=== PATIENT | male | born 1970 | race American Indian/Alaskan Native ===

== ENCOUNTER 2025-04-20 09:01 | Emergency (ER) | payer MEDICAID, SELFPAY ==
--- NOTE | 2025-04-20 09:22 | PC.NURSE ---
Patient was BIBA from [facility] following a reported fall. Patient is non-ambulatory at baseline. Per nursing staff, the fall occurred from a seated position to the floor. Patient complains of pain in the left shoulder. Denies hitting head. No LOC reported. Patient is NKA. History of diabetes mellitus (DM). Has a left arm AV fistula for hemodialysis, which is received on Friday, Friday, and Friday. Left arm fistula site appears intact.
[2025-04-20 09:30] VITALS: BP 105/72; PULSE 65; RESP 16; TEMP 36.7; O2SAT 95
--- NOTE | 2025-04-20 09:45 | XR_ITS ---
Examination: Humerus 2 views left Technique: Humerus, AP lateral 2 views Date and time of exam: April 20, 2025 1004 hours INDICATIONS: Patient fell today with injury to the arm, arm pain FINDINGS: Impacted fracture humeral neck with mild offset Shaft of the humerus intact IMPRESSION: Impacted left humeral neck fracture
--- NOTE | 2025-04-20 09:45 | XR_ITS ---
Examination: CT brain head without contrast. 2-D sagittal coronal reconstructions Date and time of exam:April 20, 2025 1037 hours Comparison November 28, 2023 INDICATIONS: Ground-level fall today with injury to the head, head pain CTDI: vol (mGy):54.9 DLP: (mGycm):1092 Technique: Multiple CT axial sections of the brain have been obtained, 5 mm slice thickness. Contrast has not been administered. 2-D sagittal, coronal reconstructions have been obtained Low dose protocols were performed. One or more of the following dose reduction techniques were used; automated exposure control, adjustment of the mA and/or KV according to patient size, use of iterative reconstruction technique. Findings: No significant ventricular enlargement. Intra-axial or extra-axial hemorrhage density is not seen. No mass effect or midline shift Basal cisterns are not remarkable. Fourth ventricle is midline. Cranial vault intact. Impression: Negative for acute hemorrhage, mass effect or midline shift
--- NOTE | 2025-04-20 09:45 | XR_ITS ---
Examination: Shoulder,left, 3 views Technique: Shoulder AP internal rotation, AP external rotation, Y view shoulder, 3 views Exam date and time :April 20, 2025 1004 hours INDICATIONS: Patient fell from wheelchair today with injury to the shoulder, shoulder pain. FINDINGS: Acute impacted angulated fracture humeral neck No shoulder dislocation Severe osteopenia IMPRESSION: Acute impacted angulated fracture humeral neck
[2025-04-20] MEDS: fentaNYL CIT INJ 50 mCg/ML AMP 2ML IVP (10:01)
--- NOTE | 2025-04-20 10:28 | EDNOTE_ITS ---
ED Fall Injury RME/HPI General Chief Complaint: Fall Stated Complaint: FALL Time Seen by Provider: 04/20/25 09:39 Arrival date/time: 04/20/25 09:01 Limitations: no limitations RME / HPI RME / HPI Narrative: 54 year old male with history of CVA, hypertension, diabetes, ESRD on HD M/W/F presents to the ED BIB from [facility] for evaluation after fall occurring ~ 1 hours [employer] today. Patient reports he was sitting in his wheelchair when he slipped off, landing on the floor on his left side. Followed by pain to the left shoulder he rates as severe that is aggravated with movements. Denies head injury although does report questionable LOC stating I don't remember the fall . No other injuries or complaints reported. Denies neck or back pain. Related Data Home Medications ?Medication ?Instructions ?Recorded ?Confirmed atorvastatin 80 mg tablet 80 mg PO QDAY 07/30/2107/31 glipizide 5 mg tablet 2.5 mg PO AC 07/30/21 insulin glargine 100 unit/mL (3 20 unit subcut QPM 10/1907/31/21 mL) subcutaneous pen (Lantus Solostar U-100 Insulin) lisinopril 40 mg tablet 40 mg PO QDAY 07/30/2107/31 carvedilol 12.5 mg tablet (Coreg) 12.5 mg PO BID 04/1304/13/23 econazole 1 %-niacinamide 4 % 1 applic topical BID 04/13/23 topical cream ergocalciferol (vitamin D2) 1,250 1,250 mcg PO QWEEK 0 04/13/23 04/13/23 mcg (50,000 unit) capsule (Vitamin D2) folic acid 1 mg tablet 1 mg PO QDAY 04/13/23 furosemide 40 mg tablet (Lasix) 40 mg PO QDAY 04/13/23 04/13/23 loperamide 2 mg capsule mg 04/13/23 sodium bicarbonate 650 mg tablet 1,300 mg PO BID 04/1304/13/23 vitamin B complex-vitamin C-folic 1 tab PO QDAY 04/13/23 acid 0.8 mg tablet (Iman-Markus) Previous Rx's ?Medication ?Instructions ?Recorded aspirin 81 mg capsule 81 mg PO QDAY #30 caps 06/01 amlodipine 10 mg tablet 10 mg PO QDAY #30 tabs 04/13 Allergies Allergy/AdvReac Type Severity Reaction Status Date / Time No Known Allergies Allergy Verified 07/31/21 16:47 Review of Systems Review of Systems Systems Reviewed: All systems reviewed, normal except as documented Past Medical History Past Medical History NEUROLOGIC: Positive Neurological Disorders, Cerebrovascular Accident and Seizures CARDIAC: Positive Cardiac Disorders and Hypertension GENITOURINARY: Positive Renal Disease and Dialysis ENDOCRINE: Positive Diabetes Mellitus Type 2 Social History SMOKING STATUS: Never smoker ED Exam General Limitations: Present no limitations General appearance: Present alert and in no apparent distress Head Head exam: Present atraumatic, normocephalic, normal inspection and other (No cervical spine tenderness to palpation, patient has full painless range of motion of his neck) Eye Eye exam: Present normal appearance, PERRL and EOMI ENT ENT exam: Present normal exam, normal oropharynx and mucous membranes moist Neck Neck exam: Present normal inspection, full ROM and trachea midline Chest Chest inspection: Present normal inspection and symmetric chest wall rise Respiratory Respiratory exam: Present normal lung sounds bilaterally Cardiovascular Cardiovascular exam: Present regular rate, normal rhythm and normal heart sounds Abdominal Exam Abdominal exam: Present soft and normal bowel sounds Extremities Exam Extremities exam: Present normal inspection and other (Patient able to move all extremities, LROM of the left upper extremity limited secondary to pain, 2+ radial pulses bilaterally and symmetrical , able to wiggle fingers, move wrist and elbow) Back Exam Back exam: Present normal inspection and full ROM Neurological Exam Neurological exam: Present alert, oriented X3 and CN II-XII intact Psychiatric Psychiatric exam: Present normal affect and normal mood Skin Skin exam: Present warm, dry, intact and normal color Course Quality Measures none Orders Category Date Time Status Miscellaneous Nursing Order NOW Care 04/20/25 11:32 Active sling [Splint / Immobilizer] STAT Care 04/20/25 12:37 Active Diet Carbohydrate Consistent Diet 04/20/[address] head/brain wo con Stat Exams 04/20/25 09:45 Completed XR humerus LT MIN 2V Stat Exams 04/20/25 09:45 Completed XR shoulder LT min 2V Stat Exams 04/20/25 09:45 Completed HYDROcodone/APAP 10/325 [[place] 10/325] Med 04/20/25 11:11 Discontinued 1 tab PO X1 ONE Morphine Inj Med 04/20/25 12:42 Discontinued 4 mg IVP NOW ONE Ondansetron Odt [Zofran Odt] Med 04/20/25 14:01 Once 4 mg PO X1 ONE fentaNYL INJ [Sublimaze Inj] Med 04/20/25 09:45 Discontinued 50 mcg IVP X1 ONE Vital Signs Vital signs: Vital Signs Temperature 98.1 F 04/20/25 09:30 Pulse Rate 65 04/20/25 09:30 Respiratory Rate 16 04/20/25 09:30 Blood Pressure 105/72 04/20/25 09:30 Pulse Oximetry (%) 95 04/20/25 09:30 Oxygen Delivery Method Room Air 04/20/25 09:30 Pulse ox is 95% on room air which is adequate. Fall MDM Narrative MDM Narrative:: I, Angeles Castillo, am scribing for and in the presence of Dr. Zelaya. Patient presents with left-sided shoulder pain after having had a fall. Unclear loss of consciousness. Patient states that he slipped out of his chair. Patient is not taking any blood thinners. Ordered CT brain and x-ray of the left shoulder. CT brain unremarkable. X-ray of the left shoulder shows a humeral neck fracture. Patient is neurovascularly intact. Provided patient with a sling we will discharge to home with close return precautions follow-up with primary care doctor as well as recommendation that he sees an orthopedic surgeon. Patient data External records reviewed:: [facility] previous records (I reviewed ED visit on 11/28/2023 ), EMS form and Care Home records (I reviewed pmhx and medication list from [place] ) Clinical information provided by:: patient and EMS Social determinants that could affect healthcare access:: housing ([place] resident ) Patient has the following chronic illnesses:: CVA, hypertension, diabetes, ESRD on HD M/W/F How is presenting disease/condition affected by chronic disease/condition?: exacerbated by Evaluation data The following diagnostics were reviewed and interpreted by me:: lab results and radiology exam(s) Lab and/or radiology exams considered but not ordered:: None Interpretation Summary: Ordering Physician: Dominique Zelaya MD Date of Service: 04/20/25 Procedure(s): CT head/brain wo con Accession Number(s): [id number] cc: Lori Cabezas MD; Leroy Kirby MD; Dominique Zelaya MD~ Examination: CT brain head without contrast. 2-D sagittal coronal reconstructions Date and time of exam:April 20, 2025 1037 hours Comparison November 28, 2023 INDICATIONS: Ground-level fall today with injury to the head, head pain CTDI: vol (mGy):54.9 DLP: (mGycm):1092 Technique: Multiple CT axial sections of the brain have been obtained, 5 mm slice thickness. Contrast has not been administered. 2-D sagittal, coronal reconstructions have been obtained Low dose protocols were performed. One or more of the following dose reduction techniques were used; automated exposure control, adjustment of the mA and/or KV according to patient size, use of iterative reconstruction technique. Findings: No significant ventricular enlargement. Intra-axial or extra-axial hemorrhage density is not seen. No mass effect or midline shift Basal cisterns are not remarkable. Fourth ventricle is midline. Cranial vault intact. Impression: Negative for acute hemorrhage, mass effect or midline shift Dictated By: Leroy Kirby MD Signed By: <Electronically signed by Leroy Kirby MD in [place]> 04/20/25 1048 === Ordering Physician: Dominique Zelaya MD Date of Service: 04/20/25 Procedure(s): XR humerus LT MIN 2V Accession Number(s): [id number] cc: Lori Cabezas MD; Leroy Kirby MD; Dominique Zelaya MD~ Examination: Humerus 2 views left Technique: Humerus, AP lateral 2 views Date and time of exam: April 20, 2025 1004 hours INDICATIONS: Patient fell today with injury to the arm, arm pain FINDINGS: Impacted fracture humeral neck with mild offset Shaft of the humerus intact IMPRESSION: Impacted left humeral neck fracture Dictated By: Leroy Kirby MD Signed By: <Electronically signed by Leroy Kirby MD in [place]> 04/20/25 1037 === Ordering Physician: Dominique Zelaya MD Date of Service: 04/20/25 Procedure(s): XR shoulder LT min 2V Accession Number(s): [id number] cc: Lori Cabezas MD; Leroy Kirby MD; Dominique Zelaya MD~ Examination: Shoulder,left, 3 views Technique: Shoulder AP internal rotation, AP external rotation, Y view shoulder, 3 views Exam date and time :April 20, 2025 1004 hours INDICATIONS: Patient fell from wheelchair today with injury to the shoulder, shoulder pain. FINDINGS: Acute impacted angulated fracture humeral neck No shoulder dislocation Severe osteopenia IMPRESSION: Acute impacted angulated fracture humeral neck Dictated By: Leroy Kirby MD Signed By: <Electronically signed by Leroy Kirby MD in [place]> 04/20/25 1038 Medications / Prescriptions Medications or Prescriptions considered but not ordered:: None Medication administrations:: Medication Administration History Discontinued Medications Hydrocodone Bitart/Acetaminophen (Hydrocodone/Apap 10/325 Tab) 1 tab PO X1 ONE Stop: 04/20/25 11:12 Last Admin: 04/20/25 11:18 Dose: 1 tab Documented By: DB Fentanyl Citrate (Fentanyl Cit Inj 50 Mcg/Ml Amp 2ml) 50 mcg IVP X1 ONE Stop: 04/20/25 09:46 Last Admin: 04/20/25 10:01 Dose: 50 mcg Documented By: EF Morphine Sulfate (Morphine Sulf Inj 10 Mg/Ml Vial) 4 mg IVP NOW ONE Stop: 04/20/25 12:43 Last Admin: 04/20/25 13:00 Dose: 4 mg Documented By: DB See above Consultations Consultation(s) initiated? (list below): No Diagnosis Fall Differential Diagnosis: syncope, dislocation of shoulder region and compression fracture Most likely diagnosis given after review of the tests above:: Left humeral neck fracture Osteopenia Admission Indicated Admission indicated?: not indicated Admission Request Was there a request for admission?: No Disposition Plan Disposition Plan: Discharge Discharge Attestation Discharge Attestation: The patient and all family members were given an opportunity to ask questions and understood the discharge instructions. Discharge instructions specifically effects, indications for sooner follow up or return to the emergency department, and the expected course of current diagnosis. Patient condition: Stable Discharge Plan Plan Patient Disposition: Xfer Skilled Nsg Fac (SNF) Discharge Disposition comment: txfer back to [facility] Patient condition on transfer: Stable Prescriptions/Referrals Prescriptions/Med Rec: No Action atorvastatin 80 mg Tablet 80 mg PO QDAY lisinopril 40 mg Tablet 40 mg PO QDAY glipizide 5 mg Tablet 2.5 mg PO AC Rx Instructions: take 1/2 table by mouth everyday before meals Lantus Solostar U-100 Insulin 100 unit/mL (3 mL) Insulin Pen 20 unit SUBCUT QPM aspirin 81 mg capsule 81 mg PO QDAY Qty: 30 0RF amlodipine 10 mg tablet 10 mg PO QDAY Qty: 30 0RF furosemide [Lasix] 40 mg Tablet 40 mg PO QDAY carvedilol [Coreg] 12.5 mg Tablet 12.5 mg PO BID Rx Instructions: must administer with a meal/food loperamide 2 mg capsule Patient Comments: PLEASE SEE ATTACHED FOR DETAILED DIRECTIONS sodium bicarbonate 650 mg Tablet 1,300 mg PO BID folic acid 1 mg Tablet 1 mg PO QDAY Iman-Markus 0.8 mg Tablet 1 tab PO QDAY ergocalciferol (vitamin D2) [Vitamin D2] 1,250 mcg (50,000 unit) Capsule 1,250 mcg PO QWEEK econazole-niacinamide 1-4 % Cream 1 applic TOPICAL BID Referrals: Lori Cabezas MD [Primary Care Provider] - In 1 week Problem List Clinical Impression: Fracture of neck of humerus, Fall, Osteopenia Patient/Caregiver Discharge Instructions Education Materials: ED Fracture, Shoulder Additional Instructions: Please follow-up with your primary care doctor and establish care with an orthopedic surgeon for definitive management of your left-sided humeral neck fracture. Return immediately if have worsening symptoms or new symptoms of concern Print Language: Albanian Stand Alone Forms: Jessica Award Info., Patient Portal Info Letter
[2025-04-20 11:11] VITALS: BMI 25.8
--- NOTE | 2025-04-20 12:29 | PC.CC ---
Kathie KENNEY was consulted by GARCIA Elizabeth for transportation back to [facility]. [phone].
[2025-04-20 12:41] VITALS: BP 112/66; PULSE 71; RESP 18; TEMP 36.4; O2SAT 96
[2025-04-20] MEDS: MORPHINE SULF INJ 10 MG/ML VIAL 4 MG IVP (13:00)
[2025-04-20] MEDS: ONDANSETRON ODT 4 MG TABRAP PO (14:06)
[2025-04-20 14:09] VITALS: BP 146/88; PULSE 75; RESP 16; TEMP 36.7; O2SAT 95
== END 2025-04-20 14:10 | disposition skilled nursing facility (03) ==
PROVIDERS: Emergency Provider Emergency Medicine; PCP Hospitalist
DX: S42.212A Unspecified displaced fracture of surgical neck of left humerus, initial encounter for closed fracture (principal); W05.0XXA Fall from non-moving wheelchair, initial encounter; M85.88 Other specified disorders of bone density and structure, other site; S09.90XA Unspecified injury of head, initial encounter
CPT/HCPCS: 70450; 73030; 73060; 96374; 96375; 99283; J2270; J3010; Q0162; A9270

== ENCOUNTER 2025-04-21 07:18 | Emergency (ER) | payer MEDICAID, SELFPAY ==
[2025-04-21] VITALS (20 sets, daily range): BP systolic 71–156; BP diastolic 41–71; PULSE 70–86; RESP 15–18; TEMP 35.9–37.1; O2SAT 91–97; BMI 27.4
--- NOTE | 2025-04-21 07:40 | PD.EDUPEX ---
Upper Extremity Injury RME/HPI General Chief Complaint: General Adult/[facility] Complain Stated Complaint: DIALYSIS PROBLEM Time Seen by Provider: 04/21/25 07:26 Arrival date/time: 04/21/25 07:18 Limitations: no limitations RME / HPI RME / HPI narrative: DR. SORIANO MAIN ED EVALUATION: 54-year-old male with past medical history of CVA, hypertension, diabetes mellitus, and ESRD on hemodialysis (Friday/Friday/Friday) presents to the Emergency Department for persistent left arm pain following recent fracture. Patient was seen and discharged from this ED on 04/20/2025 with a left humerus fracture. He reports that he has not undergone dialysis since that visit due to the fracture being at his dialysis fistula site. He denies nausea and vomiting. Patient is still urinating a little. Related Data Home Medications ?Medication ?Instructions ?Recorded ?Confirmed atorvastatin 80 mg tablet 80 mg PO QDAY 07/30/21 07/31/21 glipizide 5 mg tablet 2.5 mg PO AC 07/30/21 07/31/21 insulin glargine 100 unit/mL (3 20 unit subcut QPM 07/30/21 07/31/21 mL) subcutaneous pen (Lantus Solostar U-100 Insulin) lisinopril 40 mg tablet 40 mg PO QDAY 07/30/21 07/31/21 carvedilol 12.5 mg tablet (Coreg) 12.5 mg PO BID 04/13/23 04/13/23 econazole 1 %-niacinamide 4 % 1 applic topical BID 04/13/23 04/13/23 topical cream ergocalciferol (vitamin D2) 1,250 1,250 mcg PO QWEEK 04/13/23 04/13/23 mcg (50,000 unit) capsule (Vitamin D2) folic acid 1 mg tablet 1 mg PO QDAY 04/13/23 04/13/23 furosemide 40 mg tablet (Lasix) 40 mg PO QDAY 04/13/23 04/13/23 loperamide 2 mg capsule mg 04/13/23 sodium bicarbonate 650 mg tablet 1,300 mg PO BID 04/13/23 04/13/23 vitamin B complex-vitamin C-folic 1 tab PO QDAY 04/13/23 04/13/23 acid 0.8 mg tablet (Iman-Markus) Previous Rx's ?Medication ?Instructions ?Recorded aspirin 81 mg capsule 81 mg PO QDAY #30 caps 06/01/21 amlodipine 10 mg tablet 10 mg PO QDAY #30 tabs 04/13/23 Allergies Allergy/AdvReac Type Severity Reaction Status Date / Time No Known Allergies Allergy Verified 04/21/25 07:39 Review of Systems Review of Systems Systems Reviewed: All systems reviewed, normal except as documented Past Medical History Past Medical History NEUROLOGIC: Positive Neurological Disorders, Cerebrovascular Accident and Seizures CARDIAC: Positive Cardiac Disorders and Hypertension GENITOURINARY: Positive Renal Disease and Dialysis ENDOCRINE: Positive Diabetes Mellitus Type 2 Social History SMOKING STATUS: Never smoker SUBSTANCE USE: does not use ALCOHOL: Never ED Exam General Limitations: Present no limitations General appearance: Present alert, in no apparent distress and other (teeth grinding) Head Head exam: Present atraumatic, normocephalic and normal inspection Eye Eye exam: Present normal appearance, PERRL and EOMI ENT ENT exam: Present normal exam, normal oropharynx and mucous membranes moist Neck Neck exam: Present normal inspection, full ROM and trachea midline Chest Chest inspection: Present normal inspection and symmetric chest wall rise Respiratory Respiratory exam: Present normal lung sounds bilaterally Cardiovascular Cardiovascular exam: Present regular rate, normal rhythm and normal heart sounds Abdominal Exam Abdominal exam: Present soft and normal bowel sounds Extremities Exam Extremities exam: Present normal inspection and other (Left arm fistula in place. LROM of the left upper extremity limited secondary to pain and sling in place, 2+ radial pulses bilaterally and symmetrical , able to wiggle fingers; patient able to move all other extremities) Back Exam Back exam: Present normal inspection, full ROM and other (No cervical spine tenderness to palpation.) Neurological Exam Neurological exam: Present alert, oriented X3 and CN II-XII intact Psychiatric Psychiatric exam: Present normal affect and normal mood Skin Skin exam: Present warm, dry, intact and normal color Course Quality Measures none Orders Category Date Time Status Hemodialysis Urgent Care 04/21/25 11:52 Active Insert IV NOW Care 04/21/25 08:12 Completed CBC Stat Lab 04/21/25 08:07 Completed CMP [Comprehensive Metabolic Panel] Stat Lab 04/21/25 08:07 Completed PT [Prothrombin Time with INR] Stat Lab 04/21/25 08:07 Completed Albumin Human 25% Ivpb [Albuminar-25 Ivpb] Med 04/21/25 13:05 Discontinued 25 gm in 100 ml IV PRN Epoetin Dejon-Epbx Inj [Retacrit Inj] Med 04/21/25 14:30 Discontinued 10,000 unit SC X1 ONE Ketorolac Inj [Toradol Inj] Med 04/21/25 07:40 Discontinued 15 mg IVP X1 ONE Ondansetron Inj [Zofran Inj] Med 04/21/25 08:12 Discontinued 4 mg IVP X1 ONE Late Tray Request Routine Oth 04/21/25 13:21 Active Vital Signs Vital signs: Vital Signs Temperature 36.9 C 04/21/25 07:40 Pulse Rate 81 04/21/25 07:40 Respiratory Rate 18 04/21/25 07:40 Blood Pressure 124/71 04/21/25 07:40 Pulse Oximetry (%) 94 L 04/21/25 07:40 Oxygen Delivery Method Nasal Cannula 04/21/25 07:40 Oxygen Flow Rate 2 04/21/25 07:40 Extremity Injury MDM Narrative MDM Narrative:: Patient presents with concerns that he was unable to do dialysis at a make-up session because of a fracture in the upper extremity where he has his fistula. Vital signs and exam as listed. Patient nontoxic nonseptic. Patient sustained a humeral head fracture yesterday, was discharged in a sling he missed his regular dialysis and went to a make-up session. He has a fistula in the left forearm. He otherwise has no complaints other than pain in his left shoulder. Labs without acute hematologic abnormality. Patient is ESRD does not make any urine. Patient potassium is 5.2. Patient is breathing room air, not in distress. Will consult patient's foreign exchange position clerk for dialysis in the emergency department. Patient patient does not know his foreign exchange position clerk, I discussed the case with Dr. Fortune that states that she is not his dialysis foreign exchange position clerk but has seen the patient in the past. Given that we are unable to find out who the patient's foreign exchange position clerk is, she can be placed dialysis orders. Patient completed dialysis without any complications. Patient will be discharged home with close return precautions follow-up with his primary care doctor as well as his foreign exchange position clerk. Patient data External records reviewed:: [facility] previous records and EMS form Clinical information provided by:: patient and EMS Social determinants that could affect healthcare access:: mental health Patient has the following chronic illnesses:: CVA, hypertension, diabetes mellitus, and ESRD on hemodialysis (Friday/Friday/Friday). How is presenting disease/condition affected by chronic disease/condition?: exacerbated by Evaluation data The following diagnostics were reviewed and interpreted by me:: lab results Lab and/or radiology exams considered but not ordered:: none Interpretation Summary: Labs with evidence of hyperkalemia Medications / Prescriptions Medications or Prescriptions considered but not ordered:: none Medication administrations:: Medication Administration History Discontinued Medications Epoetin Dejon (Epoetin Dejon-Epbx Inj 10,000 Unit/Ml Vial (Esrd)) 10,000 unit SC X1 ONE Stop: 04/21/25 14:31 Albumin Human (Albuminar-25 Ivpb) 25 gm in 100 mls @ 100 mls/min IV PRN PRN PRN Reason: dialysis Stop: 04/24/25 13:04 Last Admin: 04/21/25 13:08 Dose: 100 mls/min Documented By: MM Ketorolac Tromethamine (Ketorolac Inj 30 Mg/Ml Vial) 15 mg IVP X1 ONE Stop: 04/21/25 07:41 Last Admin: 04/21/25 08:18 Dose: 15 mg Documented By: SAIRA Ondansetron HCl (Ondansetron Inj 2 Mg/Ml Inj 2 Ml) 4 mg IVP X1 ONE; Protocol Stop: 04/21/25 08:13 Last Admin: 04/21/25 08:17 Dose: 4 mg Documented By: SAIRA see above Consultations Consultation(s) initiated? (list below): Yes Consultation #1 (Physician, Specialty, Details): Discussed test HPI, PMHx, lab, radiology results and/or management with Dr. Adame. Dr. Adame will coordinate dialysis. Time: 10:02 Diagnosis Upper Extremity Injury Differential Diagnosis: other (Fracture-related pain, missed dialysis complications (e.g., volume overload or hyperkalemia), and dialysis access site complication.) Most likely diagnosis given after review of the tests above:: Hyperkalemia Admission Indicated Admission indicated?: not indicated Admission Request Was there a request for admission?: No Disposition Plan Disposition Plan: Discharge Discharge Attestation Discharge Attestation: The patient and all family members were given an opportunity to ask questions and understood the discharge instructions. Discharge instructions specifically effects, indications for sooner follow up or return to the emergency department, and the expected course of current diagnosis. Patient condition: Stable Critical Care Time Critical Care Time Critical Care Time: Yes Total Critical Care Time (min.): 40 Attestation: The high probability of sudden, clinically significant deterioration in the patient?s condition required the highest level of my preparedness to intervene urgently. The services I provided to this patient were to treat and/or prevent clinically significant deterioration. Services included the following: chart data review, reviewing nursing notes and/or old charts, documentation time, databases computer consultant collaboration regarding findings and treatment options, medication orders and management, direct patient care, vital sign assessments and ordering, interpreting and reviewing diagnostic studies and lab tests. Aggregate critical care time includes only time during which I was engaged in work directly related to the patient?s care, as described above, whether at bedside or elsewhere in the Emergency Department. It did not include time spent performing other reported procedures or the services of residents, students, nurses or physician assistants. Discharge Plan Plan Patient Disposition: Home w/HOME HEALTH Patient condition on transfer: Stable Prescriptions/Referrals Prescriptions/Med Rec: No Action atorvastatin 80 mg Tablet 80 mg PO QDAY lisinopril 40 mg Tablet 40 mg PO QDAY glipizide 5 mg Tablet 2.5 mg PO AC Rx Instructions: take 1/2 table by mouth everyday before meals Lantus Solostar U-100 Insulin 100 unit/mL (3 mL) Insulin Pen 20 unit SUBCUT QPM aspirin 81 mg capsule 81 mg PO QDAY Qty: 30 0RF amlodipine 10 mg tablet 10 mg PO QDAY Qty: 30 0RF furosemide [Lasix] 40 mg Tablet 40 mg PO QDAY carvedilol [Coreg] 12.5 mg Tablet 12.5 mg PO BID Rx Instructions: must administer with a meal/food loperamide 2 mg capsule Patient Comments: PLEASE SEE ATTACHED FOR DETAILED DIRECTIONS sodium bicarbonate 650 mg Tablet 1,300 mg PO BID folic acid 1 mg Tablet 1 mg PO QDAY Iman-Markus 0.8 mg Tablet 1 tab PO QDAY ergocalciferol (vitamin D2) [Vitamin D2] 1,250 mcg (50,000 unit) Capsule 1,250 mcg PO QWEEK econazole-niacinamide 1-4 % Cream 1 applic TOPICAL BID Referrals: No Primary/Family,Physician [Primary Care Provider] - In 1 week Problem List Clinical Impression: Acute hyperkalemia Patient/Caregiver Discharge Instructions Education Materials: ED Hyperkalemia Additional Instructions: Please follow-up with your primary care doctor as well as your foreign exchange position clerk. Per Dr. Fortune, your humeral head fracture on your left upper extremity is not a contraindication to completing dialysis through your left upper extremity fistula Print Language: Grenadian Stand Alone Forms: Jessica Award Info., Patient Portal Info Letter
[2025-04-21] MEDS: ONDANSETRON INJ 2 MG/ML INJ 2 ML 4 MG IVP (08:17)
[2025-04-21] MEDS: KETOROLAC INJ 30 MG/ML VIAL 15 MG IVP (08:18)
[2025-04-21 08:20] LABS: Basophils # (Auto) 0.0 Thou/mm3 (0.0-0.2); Basophils % (Auto) 0 % (0-2.5); Eosinophils # (Auto) 0.2 Thou/mm3 (0.0-0.5); Eosinophils % (Auto) 2 % (0-10); Hematocrit 35.3 % (41.0-53.0); Hemoglobin 11.8 g/dL (13.5-16.0); Immature Granulocytes Auto 0.04 Thou/mm3 (0.00-0.00); Lymphocytes # (Auto) 1.7 Thou/mm3 (1.0-4.8); Lymphocytes % (Auto) 17 % (10-50); Mean Corpuscular HGB Conc 33.4 g/dl (31.0-37.0); Mean Corpuscular Hemoglobin 29.4 pg (25.0-35.0); Mean Corpuscular Volume 88 fL (80-100); Monocytes # (Auto) 0.7 Thou/mm3 (0.0-0.8); Monocytes % (Auto) 7 % (0-12); Neutrophils # (Auto) 6.9 Thou/mm3 (1.8-7.7); Neutrophils % (Auto) 73 % (37-80); Nucleated Red Blood Cell # 0.00 Thou/mm3 (0.00-0.00); Nucleated Red Blood Cell % 0 /100 WBC (0); Platelet Count 191 Thou/mm3 (140-440); RDW Standard Deviation 56.2 fL (35.1-43.9); Red Blood Count 4.01 Miln/mm3 (4.50-5.90); White Blood Count 9.5 Thou/mm3 (3.8-10.6)
[2025-04-21 08:46] LABS: Alanine Aminotransferase 24 U/L (10-49); Albumin, Serum 4.3 gm/dL (3.5-5.0); Albumin/Globulin Ratio 1.3 (1.2-2.2); Alkaline Phosphatase 92 U/L (46-116); Anion Gap 15 (7-16); Aspartate Amino Transferase 23 U/L (0-34); BUN/Creatinine Ratio 4 Ratio (12-20); Bilirubin,Total 1.1 mg/dL (0.3-1.2); Blood Urea Nitrogen 47 mg/dL (9-23); Calcium 9.0 mg/dL (8.3-10.6); Calcium (Corrected) 9.0 mg/dL (8.5-10.1); Carbon Dioxide 31.5 mMol/L (20.0-31.0); Chloride 93 mMol/L (98-107); Creatinine (Component) 11.7 mg/dL (0.6-1.3); Estimated Creatinine Clearance 6.6 mL/min (>60); Globulin 3.2 gm/dL (2.3-3.5); Glucose 110 mg/dL (74-106); Osmolality,Calculated 290 (275-295); Potassium 5.2 mMol/L (3.4-5.1); Sodium 139 mMol/L (136-145); Total Protein 7.5 gm/dL (5.7-8.2); eGFR 5 See Note
[2025-04-21 09:01] LABS: INR 1.1 (0.9-1.3); Prothrombin Time 11.5 Seconds (9.0-12.2)
--- NOTE | 2025-04-21 10:41 | PD.RESCONSUL ---
HPI Data of Consult Consult date: 04/21/25 Primary Care Provider: Physician No Primary/Family Consult Narrative Reason for consult: ESRD on HD History of present illness: Osmel Dawn is 54 yr male with PMH of HTN, previous CVA with right side residual weakness, ESRD on HD M/W/F with in [place], type 2 DM presenting to ED from SNF after falling out from his wheel chair. Patient stated he was trying to get out from his wheel chair when he fell and landed on his left shoulder. There is no swelling or pain to palpation. Currently left arm is placed in a sling and having difficulty in movement. Pain is 8/10 worse in the shoulder. He has been on dialysis for about a year with point of access from left AV fisula which was difficult to examine. There is positive family history of kidney disease in his mother. She required dialysis. Patient denies any chest pain, SOB, LE swelling, diarrhea, or cramps. Last HD session was yesterday. Vitals were stable in ED. Hb 11.8, MCV 88, sodium 139, potassium 5.2, BUN 47, Cr 11.7, GFR 5, glucose 110, calcium 9.0. I attempted to call the patient's daughter but was unable to reach her. Nephrology was consulted to resume inpatient dialysis. cc:: cc: Review of Systems Review of Systems Systems Reviewed: All systems reviewed, normal except as documented Past Medical History Past Medical History NEUROLOGIC: Positive Neurological Disorders, Cerebrovascular Accident and Seizures CARDIAC: Positive Cardiac Disorders and Hypertension; Negative Congestive Heart Failure RESPIRATORY: Negative Chronic Obstructive Pulmonary Disease (COPD) or Asthma GASTROINTESTINAL: Negative Liver Cancer or Pancreatic Cancer GENITOURINARY: Positive Renal Disease and Dialysis MUSCULOSKELETAL: Negative Musculoskeletal Disorders or Muscular Dystrophy ENDOCRINE: Positive Diabetes Mellitus Type 2; Negative Diabetes Mellitus Type 1 HEMATOLOGIC: Negative Sickle Cell Disease OTHER HISTORY: Negative Down Syndrome or Developmental Delay Social History SMOKING STATUS: Never smoker SUBSTANCE USE: does not use Exam Vital Signs Temp Pulse Resp BP Pulse Ox O2 Del Method O2 Flow Rate 98.7 F 71 18 116/68 91 L Nasal Cannula 2 04/21/25 10:10 04/21/25 10:10 04/21/25 10:10 04/21/25 10:10 04/21/25 10:10 04/21/25 07:40 04/21/25 10:10 Narrative Exam General: Middle age male, No acute distress, cooperative HEENT: NCAT, No JVD noted. Mucosa moist. Pupils are equal and reactive to light bilaterally, continuously grinds teeth (needs gum all the time) Cardiovascular: Normal S1 and S2. Regular rate and rhythm. Respiratory: Lungs are clear to auscultation bilaterally. No wheezing or crackles heard. Abdomen: Soft, nontender, not distended, normal bowel sounds. Skin: Warm to touch, dry, no rashes noted Musculoskeletal: No gross injuries. Able to move all 4 extremities. No pitting edema, left AV fisutla difficult to assess due to his pain, left arm in sling Neuro: Alert and oriented x3. No focal neuro deficits. Psych: Normal affect and mood Results Labs 04/21/25 08:07 04/21/25 08:07 Labs: Short CBC 04/21/25 Range/Units 08:07 WBC 9.5 (3.8-10.6) Thou/mm3 Hgb 11.8 L (13.5-16.0) g/dL Hct 35.3 L (41.0-53.0) % Plt Count 191 (140-440) Thou/mm3 BMP 04/21/25 08:07 Sodium 139 Potassium 5.2 H Chloride 93 L Carbon Dioxide 31.5 H BUN 47 H Creatinine 11.7 H* Glucose 110 H Calcium 9.0 Liver Function 04/21/25 Range/Units 08:07 Total Bilirubin 1.1 (0.3-1.2) mg/dL AST 23 (0-34) U/L ALT 24 (10-49) U/L Alkaline Phosphatase 92 (46-116) U/L Albumin 4.3 (3.5-5.0) gm/dL Quality Measures Quality Measures none Medications Home Medications and Allergies Home Medications ?Medication ?Instructions ?Recorded ?Confirmed ?Type atorvastatin 80 mg tablet 80 mg PO QDAY 07/30/21 07/31/21 History glipizide 5 mg tablet 2.5 mg PO AC 07/30/21 07/31/21 History insulin glargine 100 unit/mL (3 20 unit subcut QPM 07/30/21 07/31/21 History mL) subcutaneous pen (Lantus Solostar U-100 Insulin) lisinopril 40 mg tablet 40 mg PO QDAY 11/01/21 11/02/21 History carvedilol 12.5 mg tablet (Coreg) 12.5 mg PO BID 04/13/23 04/13/23 History econazole 1 %-niacinamide 4 % 1 applic topical BID 04/13/23 04/13/23 History topical cream ergocalciferol (vitamin D2) 1,250 1,250 mcg PO QWEEK 04/13/23 04/13/23 History mcg (50,000 unit) capsule (Vitamin D2) folic acid 1 mg tablet 1 mg PO QDAY 04/13/23 04/13/23 History furosemide 40 mg tablet (Lasix) 40 mg PO QDAY 04/13/23 04/13/23 History loperamide 2 mg capsule mg 04/13/23 History sodium bicarbonate 650 mg tablet 1,300 mg PO BID 04/13/23 04/13/23 History vitamin B complex-vitamin C-folic 1 tab PO QDAY 04/13/23 04/13/23 History acid 0.8 mg tablet (Anna-Archana) Allergies Allergy/AdvReac Type Severity Reaction Status Date / Time No Known Allergies Allergy Verified 04/21/25 07:39 Visit Medications Discontinued Medications Ketorolac Tromethamine (Ketorolac Inj 30 Mg/Ml Vial) 15 mg IVP X1 ONE Stop: 04/21/25 07:41 Last Admin: 04/21/25 08:18 Dose: 15 mg Ondansetron HCl (Ondansetron Inj 2 Mg/Ml Inj 2 Ml) 4 mg IVP X1 ONE; Protocol Stop: 04/21/25 08:13 Last Admin: 04/21/25 08:17 Dose: 4 mg Assessment & Plan Plan Osmel Dawn is 54 yr male with PMH of HTN, previous CVA with right side residual weakness, ESRD on HD // with Dr. San, type 2 DM presenting to ED from SNF after falling out from his wheel chair. Patient stated he was trying to get out from his wheel chair when he fell and landed on his left shoulder. Nephrology was consulted to resume inpatient dialysis. #ESRD on HD M/W/ He has been on dialysis for about a year with point of access from left AV fisula which was difficult to examine. Hb 11.8, MCV 88, sodium 139, potassium 5.2, BUN 47, Cr 11.7, GFR 5, glucose 110, calcium 9.0. Patient takes amlodipine, anna archana, coreg, vitamin D, Lasix, glipizide, 20 units insulin. ESRD possibly due to hypertensive vs diabetic nephropathy. Uable to say how much urine output he has outpatient. -renally dose medications -resume inpatient dialysis -resume home medications -renal diet -monitor output #T2DM #HTN #Previous CVA with left side weakness #Fall - left arm fracture -per primary team The patient's management plan was discussed with my attending physician Dr. Adame. Carmencita Enrique, PGY-2 Attending Provider Attestation/Addendum Patient seen and examined with resident physician Dr. Enrique. Note reviewed, agree with findings and recommendations. Status post fall with a left arm fracture. Could not go to dialysis unit. Patient due for dialysis today Patient has a left forearm fistula. Patient currently seen on dialysis. Tolerating dialysis without any problems. Hemodialysis for 3 hours, 2K, ultrafiltration 1 L, Epogen 6000, no heparin ordered. Plan of care discussed with the dialysis nurse. Please see dialysis flowsheet for further details. Thank you Dr. Zelaya for allowing me to participate in the care of Mr. Dawn
--- NOTE | 2025-04-21 11:33 | PC.NURSE ---
patient stated he took his home morning meds at this time. i informed patient i would be having pharmacy hold his meds patient agreed just did not want pharmacy to hold his adderell medication. counted adderell pills with patient 15 pills were left in container 20mg each
--- NOTE | 2025-04-21 12:15 | PC.NURSE ---
patient taken to dialysis
[2025-04-21] MEDS: ALBUMIN HUMAN 25% IVPB 25 GM/100 ML BTL IV (13:08)
== END 2025-04-21 17:35 | disposition home or self-care (01) ==
PROVIDERS: Emergency Provider Emergency Medicine
DX: E87.5 Hyperkalemia (principal); N18.6 End stage renal disease; S49.92XA Unspecified injury of left shoulder and upper arm, initial encounter; I12.0 Hypertensive chronic kidney disease with stage 5 chronic kidney disease or end stage renal disease; E11.22 Type 2 diabetes mellitus with diabetic chronic kidney disease; I69.351 Hemiplegia and hemiparesis following cerebral infarction affecting right dominant side; W05.0XXA Fall from non-moving wheelchair, initial encounter; Y92.129 Unspecified place in nursing home as the place of occurrence of the external cause; Z99.2 Dependence on renal dialysis
CPT/HCPCS: 36415; 80053; 85025; 85610; 90935; 96374; 96375; 99284; J1885; J2405; P9047; G0257